=== PATIENT | female | born 1980 ===

== ENCOUNTER → 2018-04-13 | Outpatient (CLI) | payer OTHER | LOC: FIMAGING 10:19 | PROVIDERS: ATTEND Obstetrics & Gynecology | DX: O09.522 Supervision of elderly multigravida, second trimester (principal); O35.0XX0 Maternal care for (suspected) central nervous system malformation in fetus, not applicable or unspecified; Z3A.18 18 weeks gestation of pregnancy ==

== ENCOUNTER 2018-08-26 03:08 | Inpatient (IN) | payer OTHER ==
[2018-08-26] MEDS ORDERED: OXYTOCIN/RINGERS LACTATE 1,000 ML IV PRN (03:20)
[2018-08-26] MEDS ORDERED: IBUPROFEN 600 MG TAB PO PRN ×2 (03:20→05:11)
[2018-08-26] MEDS ORDERED: LIDOCAINE 1% 300 MG/30 ML SDV SC PRN (03:20)
[2018-08-26] MEDS ORDERED: LR 1,000 ML IV PRN (03:20)
[2018-08-26] MEDS ORDERED: MISOPROSTOL 200 MCG TAB PR PRN (03:20)
[2018-08-26] MEDS ORDERED: OLIVE OIL 118 ML BTL MISC PRN (03:20)
[2018-08-26] MEDS ORDERED: EPSOM SALT 454 GM TP PRN (03:20)
[2018-08-26] MEDS ORDERED: AMMONIA AROMATIC 1 EACH AMP IH ONE (03:45)
[2018-08-26] MEDS ORDERED: OLIVE OIL 118 ML BTL ONE (03:45)
[2018-08-26] MEDS ORDERED: LIDOCAINE 1% 300 MG/30 ML SDV ONE (03:45)
[2018-08-26 03:46] LABS: PLATELET COUNT 237 10^3/uL (150-400)
[2018-08-26] MEDS ORDERED: MISOPROSTOL 200 MCG TAB ONE (03:46)
[2018-08-26] MEDS ORDERED: OXYTOCIN 10 UNIT/ML VIAL ONE (03:46)
[2018-08-26] MEDS ORDERED: TERBUTALINE SULFATE 1 MG/ML VIAL ONE (03:46)
--- NOTE | 2018-08-26 04:57 | GHP ---
[f rep st] PREOP HISTORY AND PHYSICAL DATE OF ADMISSION: 08/26/2018 HISTORY: The patient is a 38-year-old, G3, P2, at 38+ weeks' gestation with an estimated due date of 09/08 by a 13-week ultrasound. The patient is in active labor. Spontaneous onset of contractions a pproximately 2:30 and the patient headed to the hospital due to history of rapid labor. The patient' s bag of water is intact and the patient is not having any bleeding. The patient has felt good movement and is not having any headaches or nausea or vomiting. The patient's initial exam by the n urse is 4 cm dilated, very stretchy and soft. CARE: The patient has been with [facility] since 11 weeks' gestation. She had a n ultrasound that adjusted her due date by a size discrepancy of 8 days. The due date was establishe d at September 08. The patient has had a relatively uncomplicated . She did have a matern al ultrasound for anatomy due to advanced maternal age. The anatomy was felt to be within norm al limits with bilateral choroid plexus cysts. The patient initially had placenta previa but this sp ontaneously resolved. The patient did not have any bleeding issues. The patient was found to be ane mikael with a hematocrit of 33%, and has been on iron. The patient has a history during her first pregn eric of having a shortened cervix in the third trimester. An ultrasound was performed at 35 weeks th at showed good weight at the 55th percentile, normal fluid and a cervical length of 3.3 cm. Th e patient has a questionable history of gestational hypertension with elevated blood pressures at the time of delivery with her first . Blood pressures through this have been normal. labs include maternal blood type of A negative with negative antibody screen, RPR nonreact angeles, rubella immune. Hepatitis B surface antigen negative. HIV negative. 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 Urine drug screen was negative. The pa tient is immune to varicella. Urinalysis and culture were negative. Pap smear showed ASCUS with neg ative HPV. Verifi testing was negative with MSAFP normal. Chlamydia test was negative. GBS culture was negative. The patient received RhoGAM on June 18. One hour Glucola was normal with a hem atocrit initially of 36% with a drop down to 33% and the patient was initiated on iron. PAST MEDICAL HISTORY: Negative. PAST SURGICAL HISTORY: Only oral surgery. PAST OBSTETRIC HISTORY: In November 2007, a viable male at 3.1 kg at 38 weeks, delivered vaginally. Poss ible gestational hypertension, and was induced for that reason. In June 2011, a viable male at 3 .4 kg at 38 weeks after a rapid 2 hour labor with a vaginal delivery minutes after rupture of membran es. The patient reported a shortened cervix with this and was given medications and pelvic rest for 2 weeks prior to labor. ALLERGIES: The patient has no known drug allergies. CURRENT MEDICATIONS: Only vitamins and iron. SOCIAL HISTORY: The patient is , lives with her and their 2 boys. Patient is a nonsm oker and uses no alcohol or drug use. PHYSICAL EXAMINATION: GENERAL: Upon admission the patient is a well-developed, well-nourished, Bennie gerson female in physical discomfort with active strong labor. VITAL SIGNS: The patient is afebrile. Blood pressure is 142/88. Difficult to get a blood pressure between contractions due to the frequenc y. For full vital signs, see nursing documentation. heart tones reveal a category 1 tracing w ith a baseline in the 120s with good variability and accelerations. No decelerations noted. Contrac tions every 1-2 minutes. : On exam, the cervix is now 9 cm dilated, 90% effaced, at +1 station. The patient requests artificial rupture of membranes and this was performed with a small amount of cl ear fluid. EXTREMITIES: Nontender and no edema. ASSESSMENT: Intrauterine at 38 weeks' gestation in active labor with artificial rupture of membranes. Group B strep negative. PLAN: Expect vaginal delivery soon. Maternal blood type A negative, and the patient will receive Rh oGAM if indicated. /[id number]/MODL
--- NOTE | 2018-08-26 05:08 | OBDEL ---
Info Type: Vaginal Presentation at Delivery: Vertex L&D Analgesia/Anesthesia Type: None GBS+: No Indications for Delivery: Spontaneous Labor Vaginal Delivery - Delivery Provider Delivery Physician/CNM: Joselyn Poon - Labor and Delivery Onset of Contractions Date: 08/26/18 Onset of Contractions Time: 02:30 Onset of Contractions Type: Spontaneous Rupture of Membranes Date: 08/26/18 Rupture of Membranes Time: 03:58 Rupture of Membranes Type: Artificial Amniotic Fluid Color: Clear Dilation Complete Date: 08/26/18 Dilation Complete Time: 04:27 Placenta Delivery Date: 08/26/18 Placenta Delivery Time: 04:47 Total Hours of Labor: 2 Non-surgical Procedures: Amniotomy Laceration: 1st Degree (perineal) Repair: Other (Specify) (none needed) Vaginal Sponge Count Correct: Yes Vaginal Needle Count Correct: Yes Vaginal Sweep Performed: Yes EBL: 300 Delivery Events: None - Medications Labor Augmentation/Induction Methods Used: None [place]orton Data JASSI: 09/08/18 Gestational Age: 38 week(s) and 1 day(s) Calixto Delivery Date: 08/26/18 Delivery Time: 04:36 Sex of : Female (Brigid) Score (1 Min): 8 Score (5 Min): 9 ICD10 Worksheet Patient Problems: Problems Problem Status Onset (spontaneous vaginal delivery) Acute
[2018-08-26] MEDS ORDERED: ACETAMINOPHEN 325 MG TAB PO PRN (05:11)
--- NOTE | 2018-08-27 10:33 | OBPP ---
Progress Note Assessment/Plan: Assessment: 38 y/o PPD #1 s/p doing well Plan: Routine PPC and support. Likely d/c home tomorrow. 08/27/18 10:34 Subjective/ Course: 08/27/18 10:29 Pt is doing well this am. She has min cramping and abdominal pain, controlled with Ibuprofen and Tylenol She is ambulating, voiding and has min lochia. Breast feeding is going well and baby is doing well. Objective: 08/26/18 03:30 Patient ABO/Rh A NEGATIVE 08/26/18 06:00 Temp Pulse Resp BP Pulse Ox 36.7 C 78 16 123/72 H 94 08/27/18 08:00 08/27/18 08:00 08/27/18 08:00 08/27/18 08:00 08/27/18 08:00 Uterine Position/Fundal Height: Umbilicus -2 Uterine Tone: Firm Physical Exam - Physical Exam General Appearance: alert, no apparent distress Neck: non-tender, full range of motion, supple Respiratory: chest non-tender, lungs clear, normal breath sounds Cardiac/Chest: regular rate, rhythm Abdomen: normal bowel sounds Extremities: swelling (no), Katharine's sign (neg)
[2018-08-28 11:36] VITALS: BP 116/67
--- NOTE | 2018-08-28 11:42 | OBPP ---
Progress Note Assessment/Plan: Assessment: PPD 2 s/p Plan: D/C home 08/28/18 11:40 Subjective/ Course: 08/27/18 10:29 Pt is doing well this am. She has min cramping and abdominal pain, controlled with Ibuprofen and Tylenol She is ambulating, voiding and has min lochia. Breast feeding is going well and baby is doing well. 08/28/18 11:40 Pt doing well - working on BF and pumping. Feels milk is in. using willams - baby has hard time on her inverted nipples. bld is light. bottom not too sore - declining ibu and tyl. urinating fine. Objective: 08/26/18 03:30 Patient ABO/Rh A NEGATIVE 08/26/18 06:00 Temp Pulse Resp BP Pulse Ox 36.3 C 72 16 116/67 95 08/28/18 08:00 08/28/18 08:00 08/28/18 08:00 08/28/18 08:00 08/28/18 08:00 Uterine Position/Fundal Height: Umbilicus -1 Uterine Tone: Firm Physical Exam - Physical Exam Abdomen: non-tender (slight with fundal pressure), soft, other (FF at umb -1) Extremities: non-tender, pedal edema (minimal) Skin: normal color, warm/dry Neuro/Psych: alert, normal mood/affect
--- NOTE | 2018-08-28 11:43 | OBGCSDC ---
General Delivery Information - General Info : 3 Para: 3 Abortions: 0 Type: Vaginal L&D Analgesia/Anesthesia Type: None Admission Date: 08/26/18 Labs: Patient ABO/Rh A NEGATIVE 08/26/18 06:00 Hct 42.8 % (38.0-47.0) 08/26/18 03:30 - Hospital Course : 08/27/18 10:29 Pt is doing well this am. She has min cramping and abdominal pain, controlled with Ibuprofen and Tylenol She is ambulating, voiding and has min lochia. Breast feeding is going well and baby is doing well. 08/28/18 11:40 Pt doing well - working on BF and pumping. Feels milk is in. using willams - baby has hard time on her inverted nipples. bld is light. bottom not too sore - declining ibu and tyl. urinating fine. Vaginal - Delivery Provider Delivery Physician/CNM: Joselyn Poon - Diagnosis Labor: Spontaneous Rupture of Membranes Type: Artificial Amniotic Fluid Color: Clear Laceration: 1st Degree (perineal) Repair: Other (Specify) (none needed) Delivery Events: None - Procedures Non-surgical Procedures: Amniotomy - Delivery Non-surgical Procedures: Amniotomy EBL: 300 Data JASSI: 09/08/18 Gestational Age: 38 week(s) and 3 day(s) Calixto Delivery Date: 08/26/18 Delivery Time: 04:36 Sex of : Female Weight (gm): 3130 g Score (1 Min): 8 Score (5 Min): 9 Discharge Information - Discharge Information Condition: Good Instruction/Follow Up: See Instruction Sheet, Two Weeks (2-3 wks with therapist) , Six Weeks (with LJ)
== END 2018-08-28 13:00 | disposition home or self-care (01) | DRG 807 ==
LOC: OBSVTOIN 03:08 → FLD 03:08 → FOB 08:14
PROVIDERS: ADMIT Obstetrics & Gynecology; ATTEND Obstetrics & Gynecology
PROC: 10E0XZZ Delivery of Products of Conception, External Approach (ICD-10-PCS; principal; 2018-08-26)
PROC: 10907ZC Drainage of Amniotic Fluid, Therapeutic from Products of Conception, Via Natural or Artificial Opening (ICD-10-PCS; 2018-08-26)
DX: O70.0 First degree perineal laceration during delivery (principal); Z3A.38 38 weeks gestation of pregnancy; Z37.0 Single live birth
CPT/HCPCS: J2590; J3105